=== PATIENT | female | born 2005 | race Caucasian/White ===

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

== ENCOUNTER 2023-03-19 18:45 | Emergency (ER) | payer MEDICAID ==
[~2023-03-19] VITALS: Ht 152.4 cm; Wt 88.0 kg
[~2023-03-19 18:45] MED LIST changes: +SULF-59 PO
[2023-03-19 18:54] VITALS: BP 132/80; PULSE 79; RESP 17; TEMP 97.3; O2SAT 98
[2023-03-19] MEDS ORDERED: CEPH-588 PO (19:38)
[2023-03-19] MEDS ORDERED: BACTO TP (19:38)
[2023-03-19] MEDS ORDERED: IBUP-2213 PO (19:38)
== END 2023-03-19 20:30 | disposition home or self-care (01) ==
LOC: MED 18:45
DX: L73.9 Follicular disorder, unspecified (principal); M54.2 Cervicalgia; J45.909 Unspecified asthma, uncomplicated; E11.9 Type 2 diabetes mellitus without complications; Z79.899 Other long term (current) drug therapy
CPT/HCPCS: 99281

== ENCOUNTER 2024-02-10 12:12 | Emergency (ER) | payer MEDICAID ==
[~2024-02-10] VITALS: Ht 156.2 cm; Wt 80.4 kg
[~2024-02-10 12:12] MED LIST changes: +BACTO TP; -GLIP5TAB13 PO; +GLIP5TAB22 PO
[2024-02-10 12:24] VITALS: BP 126/81; PULSE 86; RESP 18; TEMP 98.2; O2SAT 98
[2024-02-10] MEDS ORDERED: HYDR28CR67 TP (13:05)
[2024-02-10] MEDS ORDERED: DIPH25TA53 PO (13:05)
[2024-02-10 14:00] VITALS: BP 131/60; PULSE 80; RESP 18; TEMP 97.3; O2SAT 99
== END 2024-02-10 14:00 | disposition home or self-care (01) ==
LOC: MED 12:12
DX: L25.9 Unspecified contact dermatitis, unspecified cause (principal); R03.0 Elevated blood-pressure reading, without diagnosis of hypertension; J45.909 Unspecified asthma, uncomplicated; E11.9 Type 2 diabetes mellitus without complications; Z79.899 Other long term (current) drug therapy
CPT/HCPCS: 99282

== ENCOUNTER 2024-03-13 10:55 | Emergency (ER) | payer MEDICAID ==
[~2024-03-13] VITALS: Ht 152.4 cm; Wt 81.6 kg
[~2024-03-13 10:55] MED LIST changes: +DIPH25TA53 PO; +HYDR28CR67 TP
[2024-03-13 11:10] VITALS: PULSE 94; RESP 22; TEMP 98.3; O2SAT 99
[2024-03-13 11:23] VITALS: BP 127/82; PULSE 94; RESP 21; TEMP 98.3
[2024-03-13 11:24] VITALS: O2SAT 99
[2024-03-13] MEDS ORDERED: MUC600 PO (12:19)
[2024-03-13] MEDS ORDERED: BENZ-300 PO (12:19)
[2024-03-13] MEDS ORDERED: IBUP-2213 PO (12:19)
[2024-03-13] MEDS ORDERED: BENZ200C4 PO (12:19)
== END 2024-03-13 12:25 | disposition home or self-care (01) ==
LOC: MED 10:55
DX: J06.9 Acute upper respiratory infection, unspecified (principal); B97.89 Other viral agents as the cause of diseases classified elsewhere; J45.909 Unspecified asthma, uncomplicated; E11.9 Type 2 diabetes mellitus without complications; Z79.899 Other long term (current) drug therapy
CPT/HCPCS: 99282